=== PATIENT | female | born 1980 | race Caucasian/White ===

== ENCOUNTER 2016-05-26 20:28 | Emergency (ER) | payer BC ==
[2016-05-26 22:24] VITALS: BP 121/81
--- NOTE | 2016-05-27 23:34 | ER ---
HISTORY OF PRESENT ILLNESS: A 35-year-old lady here with complaints of abdominal discomfort. She does not describe it as pain. She states she feels more bloated. This has been ongoing for 3 days. She has noticed that her stool is robles colored at times. Again, she has no problems with abdominal pain. She has noticed her appetite is reduced and if she tries to eat anything at any form of spicy or greasy food, her stomach then becomes more upset. She has not been running a fever to her knowledge. She has been drinking fluids fairly well. Her is here and he is not having any similar symptoms. OBJECTIVE: GENERAL APPEARANCE: The patient is awake and alert, in no obvious distress. VITAL SIGNS: Reviewed. She is normotensive, temp is 99 degrees, pulse 85. LUNGS: Clear. There is no CVA tenderness with percussion. ABDOMEN: Soft with mild discomfort with palpation. There is no guarding. Bowel sounds are present and active. SKIN: Warm and dry. LABORATORY AND X-RAY: CBC is basically normal. Eosinophils are slightly elevated. Comprehensive metabolic panel is normal. UA is normal. DIAGNOSIS: Gastroenteritis. TREATMENT PLAN: The patient is to increase her liquid intake using small frequent drinks starting with water. She is to utilize food using a soft, bland diet and again in small amounts. She could consider taking an antacid such as [id number] Prilosec for a couple of days. Recheck should be p.r.n. if her symptoms are not resolving within the next 2 or 3 days. CRS/MODL /[id number]
== END 2016-05-26 21:46 | disposition home or self-care (01) ==
LOC: LB.ED 20:28
DX: K52.9 Noninfective gastroenteritis and colitis, unspecified (principal)
CPT/HCPCS: 36415; 80053; 81001; 85025; 99284

== ENCOUNTER 2017-01-23 07:32 | Emergency (ER) | payer BC ==
--- NOTE | 2017-01-23 10:29 | EDM.PDOC ---
ED HPI GENERAL MEDICAL PROBLEM - General Chief Complaint: Cardiovascular Problem Stated Complaint: palpatations Time Seen by Provider: 01/23/17 08:10 Source of Information: Reports: Patient History Limitations: Reports: No Limitations - History of Present Illness INITIAL COMMENTS - FREE TEXT/NARRATIVE: According to patient she claims that she has been having racing heart on and off for past 1-2 wks now. It happens all the time. Her heart rate is in 100s. No dizziness, chest pain or syncope. No shortness of breath or dyspnea. Also she claims that she has very poor appetite during the same time. She claims she feels full when she eats very little food, but her stomach keeps gurgling and feels hungry all the time. No fever or chills. No loss of weight or appetite.Positive heart varela, belching and burping. Pt claims that she has been going through lot of mental stress at this point. They have just moved from [place], [place], settling down in a new place. Kennedy pet dog has been sick and had surgery in [place] and still has some bleeding complications. She has not been sleeping. Also she has underlying PTSD form her past medical condition. Duration: Week(s): (2) Severity: Mild Improves with: Reports: None Worsens with: Reports: None Associated Symptoms: Denies: Confusion, Chest Pain, Cough, Diaphoresis, Fever/ Chills, Headaches, Nausea/Vomiting, Rash, Shortness of Breath, Syncope, Weakness Abdominal Pain Score (Numeric/FACES): 3 - Related Data Allergies Allergy/AdvReac Type Severity Reaction Status Date / Time cephalexin [From Keflex] Allergy Abdominal Verified 05/26/16 22:47 Pain Home Meds: Home Meds Ibuprofen 800 mg PO DAILY PRN 05/26/16 [History] Past Medical History HEENT History: Reports: Allergic Rhinitis Cardiovascular History: Reports: Other (See Below) Other Cardiovascular History: Hx organ failure during toxic shock syndrome, sepsis Genitourinary History: Reports: UTI, Recurrent 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: , Other (See Below) Other OB/BYN History: hx miscarriage, sepsis since some of fetus/placenta was retained Musculoskeletal History: Reports: Amputation, Other (See Below) Other Musculoskeletal History: quad amputee, 2 weeks ago was on bactrim for abscess on leg Psychiatric History: Reports: PTSD Endocrine/Metabolic History: Reports: Other (See Below) Other Endocrine/Metabolic History: hx insipitous diabetes during sepsis 4 years ago Hematologic History: Reports: Other (See Below) Other Hematologic History: sepsis with complete organ shut down Other Dermatologic History: hx abscess 2 weeks ago, healed - Past Surgical History HEENT Surgical History: Reports: Tonsillectomy Musculoskeletal Surgical History: Reports: Amputation Social & Family History - Family History Family Medical History: Noncontributory - Tobacco Use Smoking Status *Q: Current Every Day Smoker Years of Tobacco use: 10 Packs/Tins Daily: 1 Used Tobacco, but Quit: No - Caffeine Use Caffeine Use: Reports: Coffee - Alcohol Use Days Per Week of Alcohol Use: 1 Number of Drinks Per Day: 2 Total Drinks Per Week: 2 - Recreational Drug Use Recreational Drug Use: No ED ROS GENERAL - Review of Systems Review Of Systems: See Below Constitutional: Denies: Fever, Chills, Weakness HEENT: Denies: Ear Pain, Rhinitis, Throat Pain, Throat Swelling, Vertigo Respiratory: Denies: Shortness of Breath, Wheezing, Pleuritic Chest Pain, Cough , Sputum Cardiovascular: Denies: Chest Pain, Lightheadedness GI/Abdominal: Reports: Abdominal Pain, Nausea. Denies: Anorexia, Hematemesis, Hematochezia, Melena, Vomiting : Denies: Dysuria, Flank Pain Musculoskeletal: Denies: Back Pain, Joint Pain, Joint Swelling Skin: Denies: Pruritis, Rash Neurological: Denies: Confusion, Dizziness Psychiatric: Reports: Anxiety, Depression. Denies: Agitation, Confusion, Cravings, Hallucinations, Suicidal Ideation ED EXAM, GENERAL - Physical Exam Exam: See Below Exam Limited By: No Limitations General Appearance: Alert, WD/WN, No Apparent Distress, Anxious Eye Exam: Bilateral Eye: EOMI, PERRL Ears: Normal External Exam, Normal Canal, Hearing Grossly Normal, Normal TMs Ear Exam: Bilateral Ear: Auricle Normal, Canal Normal, TM normal Nose: Normal Inspection, Normal Mucosa, No Blood Throat/Mouth: Normal Inspection, Normal Lips, Normal Teeth, Normal Gums, Normal Oropharynx, Normal Voice, No Airway Compromise Head: Atraumatic, Normocephalic Neck: Normal Inspection, Supple, Non-Tender, Full Range of Motion Respiratory/Chest: No Respiratory Distress, Lungs Clear, Normal Breath Sounds, No Accessory Muscle Use, Chest Non-Tender Cardiovascular: Normal Peripheral Pulses, Regular Rate, Rhythm, No Edema, No Gallop, No JVD, No Murmur, No Rub GI/Abdominal: Normal Bowel Sounds, No Organomegaly, No Distention, Tender ( epigastium) Extremities: Other (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 On the court monitor her rate settles down into 70s when she is relaxed, and when she gets anxious or stressed talking about her sick dog or her past medical history of ( septic shock syndrome) her heart rate goes up into 100s. Her CBC and CMP are normal. Her palpitation is related to her anxiety. Does not appear to be of cardiac etiology. Also she has developed stress gastritis from vagal stimulation. I have started her on prilosec 40mg daily for 1 month. Also for her sleep she was started on trazodone as she has problem with initial insomnia. I have advised her to followup in clinic for further workup. Last Recorded V/S: Last Vital Signs Temp 98.6 F 01/23/17 08:00 Pulse 110 H 01/23/17 08:00 Resp 20 01/23/17 08:00 BP 121/67 01/23/17 08:00 Pulse Ox 100 01/23/17 08:00 - Orders/Labs/Meds Orders: Active Orders 24 hr Category Date Time Status Cardiac Monitoring [RC] .As Directed Care 01/23/17 09:43 Active EKG Documentation Completion [RC] ASDIRECTED Care 01/23/17 07:58 Active Labs: Laboratory Tests 01/23/17 01/23/17 Range/Units 08:40 08:40 WBC 6.4 D (4.0-11.0) K/uL RBC 4.44 (3.80-5.80) M/uL Hgb 14.0 (11.5-16.5) g/dL Hct 40.1 (37.0-47.0) % MCV 90 (76-96) fL MCH 31.5 (27.0-32.0) pg MCHC 34.9 (31.0-35.0) g/dL RDW 12.7 (11.0-16.0) % Plt Count 276 (150-500) K/uL MPV 9.6 (6.0-10.0) fL Neut % (Auto) 75.9 H (45.0-70.0) % Lymph % (Auto) 16.0 L (20.0-40.0) % [place] % (Auto) 5.0 (3.0-10.0) % Eos % (Auto) 2.8 (1.0-5.0) % Baso % (Auto) 0.3 (0.0-0.5) % Neut # (Auto) 4.83 (2.00-7.50) K/uL Lymph # (Auto) 1.02 L (1.50-4.00) K/uL [place] # (Auto) 0.32 (0.20-0.80) K/uL Eos # (Auto) 0.18 (0.04-0.40) K/uL Baso # (Auto) 0.02 (0.02-0.10) K/uL Sodium 140 (136-145) mmol/L Potassium 3.8 (3.5-5.1) mmol/L Chloride 104 (98-107) mmol/L Carbon Dioxide 24.1 (21.0-32.0) mmol/L Anion Gap 15.7 H (5.0-15.0) mmol/L BUN 8 (8-26) mg/dL Creatinine 0.61 (0.55-1.02) mg/dL Est Cr Clr Drug Dosing 118.21 mL/min Estimated GFR (MDRD) > 60 (>60) MLS/MIN BUN/Creatinine Ratio 13.1 (6-25) Glucose 115 H (74-100) mg/dL Calcium 8.8 (8.5-10.1) mg/dL Total Bilirubin 1.5 H D (0.0-1.0) mg/dL AST 14 L (15-37) U/L ALT 23 (12-78) U/L Alkaline Phosphatase 77 (46-116) U/L Total Protein 7.1 (6.4-8.2) g/dL Albumin 4.1 (3.4-5.0) g/dL Globulin 3.0 (2.2-4.2) g/dL Albumin/Globulin Ratio 1.4 (0.8-2.0) Departure - Departure Time of Disposition: 08:50 Disposition: Home, Self-Care 01 Condition: Good Clinical Impression: Gastritis, Insomnia Instructions: Gastritis, Adult, [id number], Food Choices for Gastroesophageal Reflux Disease, Adult, [id number], Trazodone tablets, Omeprazole tablets (OTC) Referrals: PCP,None [Primary Care Provider] - Forms: ED Department Discharge Care Plan Goals: Take prilosec in am 1/2 hour before meals, bland diet and trazadone 100mg for sleep. Limit coffee, limit alcohol. Return to clinic if problem persists - Problem List & Annotations (1) Gastritis SNOMED Code(s): 4126060 Code(s): K29.70 - GASTRITIS, UNSPECIFIED, WITHOUT BLEEDING Status: Acute (2) Insomnia SNOMED Code(s): 555485227 Code(s): G47.00 - INSOMNIA, UNSPECIFIED Status: Acute - Problem List Review Problem List Initiated/Reviewed/Updated: Yes - My Orders Last 24 Hours: My Active Orders 01/23/17 07:58 EKG Documentation Completion [RC] ASDIRECTED 01/23/17 09:43 Cardiac Monitoring [RC] .As Directed - Assessment/Plan Last 24 Hours: My Active Orders 01/23/17 07:58 EKG Documentation Completion [RC] ASDIRECTED 01/23/17 09:43 Cardiac Monitoring [RC] .As Directed Assessment:: Stress gastritis Initial insomnia Plan: Pt's EKG is in normal sinus rhythm. On the court monitor her rate settles down into 70s when she is relaxed, and when she gets anxious or stressed talking about her sick dog or her past medical history of ( septic shock syndrome) her heart rate goes up into 100s. Her CBC and CMP are normal. Her palpitation is related to her anxiety. Does not appear to be of cardiac etiology. Also she has developed stress gastritis from vagal stimulation. I have started her on prilosec 40mg daily for 1 month. Also for her sleep she was started on trazodone as she has problem with initial insomnia. I have advised her to followup in clinic for further workup.
== END 2017-01-23 09:15 | disposition home or self-care (01) ==
LOC: LB.ED 07:32
DX: K29.70 Gastritis, unspecified, without bleeding (principal); G47.00 Insomnia, unspecified; F17.210 Nicotine dependence, cigarettes, uncomplicated; Z79.1 Long term (current) use of non-steroidal anti-inflammatories (NSAID); Z88.1 Allergy status to other antibiotic agents
CPT/HCPCS: 36415; 80053; 85025; 93005; 99285-25

== ENCOUNTER → 2017-11-13 | Emergency (ER) | payer BC ==
[~2017-11-13] MED LIST: Sulfamethoxazole/Trimethoprim 800-160 MG Tab ONE; cefTRIAXone 1 GM Vial IM ONE
--- NOTE | 2017-11-15 15:22 | EDM.PDOC ---
ED HPI GENERAL MEDICAL PROBLEM - General Chief Complaint: General Stated Complaint: UTI Time Seen by Provider: 11/13/17 23:15 Source of Information: Reports: Patient History Limitations: Reports: No Limitations - History of Present Illness INITIAL COMMENTS - FREE TEXT/NARRATIVE: This is a 37yo F here for hematuria and pelvic pressure. She has had these symptoms in the past with a UTI and has no allergies to antibiotics. Denies fever or chills. No other health symptoms. 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: , Other (See Below) 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: hx miscarriage, sepsis since some of fetus/placenta was retained Musculoskeletal History: Reports: Amputation, Other (See Below) Other Musculoskeletal History: quad amputee, 2 weeks ago was on bactrim for abscess on leg Psychiatric History: Reports: PTSD Endocrine/Metabolic History: Reports: Other (See Below) Other Endocrine/Metabolic History: hx insipitous diabetes during sepsis 4 years ago Hematologic History: Reports: Other (See Below) Other Hematologic History: sepsis with complete organ shut down Other Dermatologic History: hx abscess 2 weeks ago, healed - Past Surgical History HEENT Surgical History: Reports: Tonsillectomy Musculoskeletal Surgical History: Reports: Amputation Social & Family History - Family History Family Medical History: Noncontributory - Caffeine Use Caffeine Use: Reports: Coffee ED ROS GENERAL - Review of Systems Review Of Systems: ROS reveals no pertinent complaints other than HPI. ED EXAM, GENERAL - Physical Exam Exam: See Below Exam Limited By: No Limitations General Appearance: Alert, WD/WN, No Apparent Distress Ears: Normal External Exam Nose: Normal Inspection Throat/Mouth: Normal Inspection Head: Atraumatic, Normocephalic Neck: Normal Inspection Respiratory/Chest: No Respiratory Distress Cardiovascular: Normal Peripheral Pulses GI/Abdominal: Normal Bowel Sounds Back Exam: Normal Inspection. No: CVA Tenderness (R), CVA Tenderness (L) Neurological: Alert, Oriented Psychiatric: Normal Affect, Normal Mood Skin Exam: Warm, Dry, Intact Course - Orders/Labs/Meds Labs: Laboratory Tests 11/13/17 Range/Units 23:19 Urine Color Red Urine Appearance Cloudy (CLEAR) Urine pH 7.0 (5.0-8.0) Ur Specific [place] 1.015 (1.003-1.030) Urine Protein Trace H (NEGATIVE) mg/dL Urine Glucose (UA) Negative (NEGATIVE) mg/dL Urine Ketones Negative (NEGATIVE) mg/dL Urine Occult Blood Large H (NEGATIVE) Urine Nitrite Negative (NEGATIVE) Urine Bilirubin Negative (NEGATIVE) Urine Urobilinogen 0.2 (0.2-1.0) E.U./dL Ur Leukocyte Esterase Large H (NEGATIVE) Urine RBC 10-20 H /HPF Urine WBC 20-30 H /HPF Ur Squamous Epith Cells Few /HPF Urine Bacteria Moderate H /HPF Meds: Medications Discontinued Medications Generic Name Dose Route Start Last Admin Trade Name Taryn PRN Reason Stop Dose Admin Ceftriaxone Sodium 1 gm 11/13/17 23:20 11/13/17 23:30 Rocephin IM 11/13/17 23:21 1 gm ONETIME ONE Administration Trimethoprim/Sulfamethoxazole 6 tab 11/13/17 23:55 Loraine Ds .ROUTE 11/13/17 23:56 .STK-MED ONE Departure - Departure Time of Disposition: 23:45 Disposition: Home, Self-Care 01 Condition: Good Clinical Impression: UTI (urinary tract infection) Qualifiers: Urinary tract infection type: acute cystitis Hematuria presence: with hematuria Qualified Code(s): N30.01 - Acute cystitis with hematuria - Discharge Information Instructions: Urinary Tract Infection, Adult Forms: ED Department Discharge Additional Instructions: Take Bactrim one tab 2 times a day for 3 days. Take Diflucan if needed and repeat in 48hours if 1st dose does not work
== END | disposition home or self-care (01) ==
LOC: LB.ED 22:54
DX: N30.01 Acute cystitis with hematuria (principal); Z88.1 Allergy status to other antibiotic agents; Z79.899 Other long term (current) drug therapy
CPT/HCPCS: 81001; 96372; 99283; A9270; J0696

== ENCOUNTER 2019-05-08 22:55 | Emergency (ER) | payer BC ==
[2019-05-08] MEDS ORDERED: Ciprofloxacin 500 MG Tab ONE (23:05)
[2019-05-08] MEDS ORDERED: Phenazopyridine 100 MG Tab ONE (23:05)
--- NOTE | 2019-05-09 14:25 | EDM.PDOC ---
ED HPI GENERAL MEDICAL PROBLEM - General Chief Complaint: General Stated Complaint: UTI SYMPTOMS Time Seen by Provider: 05/08/19 23:20 Source of Information: Reports: Patient, RN History Limitations: Reports: No Limitations - History of Present Illness INITIAL COMMENTS - FREE TEXT/NARRATIVE: Patient is a 38 year old white female with complaint of urinary frequency and burning that started today. Has occassional UTI's Denies fever , flank pain or Abdominal pain Onset: Today Onset Date: 05/08/19 Onset Time: 12:00 Duration: Hour(s): (9), Getting Worse Quality: Reports: Burning Severity: Mild Associated Symptoms: Reports: No Other Symptoms Bladder Pain Score (Numeric/FACES): 3 - Related Data Home Meds: Home Meds Omeprazole 1 cap PO DAILY 05/08/19 [History] traZODone HCl [Trazodone HCl] 1 tab PO BEDTIME 05/08/19 [History] Past Medical History HEENT History: Reports: Allergic Rhinitis, Impaired Vision Cardiovascular History: Reports: Other (See Below) Other Cardiovascular History: Hx organ failure during toxic shock syndrome, sepsis Gastrointestinal History: Reports: GERD Genitourinary History: Reports: UTI, Recurrent 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: , Other (See Below) 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 LOADER History: hx miscarriage, sepsis since some of fetus/placenta was retained Musculoskeletal History: Reports: Amputation, Other (See Below) Other Musculoskeletal History: quad amputee, 2 weeks ago was on bactrim for abscess on leg Psychiatric History: Reports: Anxiety, PTSD Endocrine/Metabolic History: Reports: Other (See Below) Other Endocrine/Metabolic History: hx insipitous diabetes during sepsis 4 years ago Hematologic History: Reports: Other (See Below) Other Hematologic History: sepsis with complete organ shut down Other Dermatologic History: hx abscess 2 weeks ago, healed - Past Surgical History HEENT Surgical History: Reports: Tonsillectomy Musculoskeletal Surgical History: Reports: Amputation Social & Family History - Family History Family Medical History: Noncontributory - Tobacco Use Smoking Status *Q: Never Smoker Second Hand Smoke Exposure: No - Caffeine Use Caffeine Use: Reports: None - Recreational Drug Use Recreational Drug Use: No ED ROS GENERAL - Review of Systems Review Of Systems: See Below Constitutional: Denies: Fever, Chills, Weakness, Decreased Appetite Respiratory: Denies: Shortness of Breath, Cough Cardiovascular: Denies: Chest Pain GI/Abdominal: Denies: Nausea, Vomiting : Reports: Dysuria, Frequency, Pain, Urgency. Denies: Flank Pain, Urinary Retention ED EXAM, RENAL/ - Physical Exam Exam: See Below Exam Limited By: No Limitations General Appearance: Alert, WD/WN, No Apparent Distress Cardiovascular: Regular Rate, Rhythm GI/Abdominal: Soft, Non-Tender Extremities: Normal Inspection, Non-Tender Neurological: Alert, Oriented Skin Exam: Warm, Dry, Intact Lymphatic: No Adenopathy Course - Vital Signs Last Recorded V/S: Last Vital Signs Temp 99 F 05/08/19 23:00 Pulse 92 05/08/19 23:00 Resp 20 05/08/19 23:00 BP 129/75 05/08/19 23:00 Pulse Ox - Orders/Labs/Meds Labs: Laboratory Tests 05/08/19 Range/Units 23:05 Urine Color Other Urine Appearance Clear (CLEAR) Urine pH 6.5 (5.0-8.0) Ur Specific [place] 1.015 (1.003-1.030) Urine Protein Negative (NEGATIVE) mg/dL Urine Glucose (UA) Negative (NEGATIVE) mg/dL Urine Ketones Negative (NEGATIVE) mg/dL Urine Occult Blood Large H (NEGATIVE) Urine Nitrite Negative (NEGATIVE) Urine Bilirubin Negative (NEGATIVE) Urine Urobilinogen 0.2 (0.2-1.0) E.U./dL Ur Leukocyte Esterase Small H (NEGATIVE) Urine RBC 5-10 H /HPF Urine WBC 10-20 H /HPF Urine WBC Clumps Few /HPF Ur Squamous Epith Cells Few /HPF Departure - Departure Time of Disposition: 23:50 Disposition: Home, Self-Care 01 Condition: Good Clinical Impression: UTI, Urinary tract infectious disease - Discharge Information *PRESCRIPTION DRUG MONITORING PROGRAM REVIEWED*: Not Applicable *COPY OF PRESCRIPTION DRUG MONITORING REPORT IN PATIENT CHUY: Not Applicable Instructions: Phenazopyridine tablets, Urinary Tract Infection, Adult, Easy-to- Read, Fluconazole tablets, Ciprofloxacin tablets Referrals: PCP,None [Primary Care Provider] - Forms: ED Department Discharge Additional Instructions: Begin taking provided Cipro as directed: 1 tablet by mouth twice daily for 3 days. Fill prescription for Diflucan tomorrow at regular pharmacy and take as instructed. May also take provided Pyridium as instructed: 2 talets by mouth 3 times daily as needed for bladder spasms/pain. Drink plenty of fluids (water) and get plenty of rest. Also drink 2-3 8oz glasses of cranberry juice daily to help with relief of symptoms. If there is any need to change antibiotic therapy , you will be contacted once culture results have been completed. Should symptoms worsen or persist, return to clinic for further evaluation treatment. Call with any questions. Sepsis Event Note - Evaluation Sepsis Screening Result: No Definite Risk - Focused Exam Date Exam was Performed: 05/10/19 Time Exam was Performed: 09:59
== END 2019-05-08 23:30 | disposition home or self-care (01) ==
LOC: LB.ED 22:55
DX: N39.0 Urinary tract infection, site not specified (principal); K21.9 Gastro-esophageal reflux disease without esophagitis; Z79.899 Other long term (current) drug therapy
CPT/HCPCS: 81001; 87086; 87088; 87186; 99283; A9270

== ENCOUNTER 2020-06-04 22:53 | Emergency (ER) | payer BC ==
--- NOTE | 2020-06-04 23:12 | EDM.PDOC ---
ED HPI GENERAL MEDICAL PROBLEM - General Chief Complaint: Lower Extremity Injury/Pain Stated Complaint: swelling in leg Time Seen by Provider: 06/04/20 23:33 Source of Information: Reports: Patient, RN History Limitations: Reports: No Limitations - History of Present Illness INITIAL COMMENTS - FREE TEXT/NARRATIVE: 39 YOF with bilateral at knee amputations presents to the ED with with erythema and swelling on the skin of her Rt leg amputation site. Skin is not warm to the touch. There is a palpable lump present. No rash noted. She has no fever. Symptoms began this morning. She has taken 600 Ibuprofen for her symptoms. Symptoms began this evening. 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 - Related Data Home Meds: Home Meds Omeprazole 1 cap PO DAILY 05/08/19 [History] traZODone HCl [Trazodone HCl] 1 tab PO BEDTIME 05/08/19 [History] Past Medical History HEENT History: Reports: Allergic Rhinitis, Impaired Vision Cardiovascular History: Reports: Other (See Below) Other Cardiovascular History: Hx organ failure during toxic shock syndrome, sepsis Gastrointestinal History: Reports: GERD Genitourinary History: Reports: UTI, Recurrent 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: , Other (See Below) Other ACCOUNTING 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 SUPERVISOR History: hx miscarriage, sepsis since some of fetus/placenta was retained Musculoskeletal History: Reports: Amputation Other Musculoskeletal History: quad amputee, 2 weeks ago was on bactrim for abscess on leg Psychiatric History: Reports: Anxiety, PTSD Endocrine/Metabolic History: Reports: Other (See Below) Other Endocrine/Metabolic History: hx insipitous diabetes during sepsis 4 years ago Hematologic History: Reports: Other (See Below) Other Hematologic History: sepsis with complete organ shut down Other Dermatologic History: hx abscess 2 weeks ago, healed - Past Surgical History HEENT Surgical History: Reports: Tonsillectomy Musculoskeletal Surgical History: Reports: Amputation Social & Family History - Family History Family Medical History: No Pertinent Family History - Caffeine Use Caffeine Use: Reports: None Review of Systems - Review of Systems Review Of Systems: Comprehensive ROS is negative, except as noted in HPI. Skin: Reports: Other (cystic mass distal femur, at amputation site. ) ED EXAM, GENERAL - Physical Exam Exam: See Below Exam Limited By: No Limitations General Appearance: Alert, WD/WN, Anxious Eye Exam: Bilateral Eye: PERRL Ears: Normal External Exam Nose: Normal Inspection, Normal Mucosa Throat/Mouth: Normal Inspection, Normal Lips, Normal Teeth Head: Atraumatic, Normocephalic Neck: Normal Inspection, Supple, Non-Tender Respiratory/Chest: No Respiratory Distress, Lungs Clear, Normal Breath Sounds Cardiovascular: Normal Peripheral Pulses, Regular Rate, Rhythm, No Edema GI/Abdominal: Soft, Non-Tender (Female) Exam: Deferred Rectal (Female) Exam: Deferred Extremities: Joint Swelling Neurological: Alert, Oriented, CN II-XII Intact Skin Exam: Warm, Dry, Intact, Normal Color, No Rash, Other (cystic mass distal femur) ED TRAUMA EXTREMITY PROCEDURES - Additional/Other Procedure(s) Other (Free Text) Procedure(s): Drained cyst Rt lower extremity. Cleansed with Betadine. 2% Lidocaine used to numb the area. Injected 5ML into the site. 18G needle used to drain a 2cm cystic mass distal femur. Course - Orders/Labs/Meds Orders: Active Orders 24 hr Category Date Time Status Femur wo Cont Rt [CT] Stat Exams 06/04/20 23:07 Ordered CBC WITH AUTO DIFF [HEME] Stat Lab 06/04/20 23:06 Ordered COMPREHENSIVE METABOLIC PN,CMP [CHEM] Stat Lab 06/04/20 23:06 Ordered Departure - Departure Time of Disposition: 00:22 Disposition: Home, Self-Care 01 Condition: Good Clinical Impression: Other cyst of bone, right lower leg Clinical Impression: (Ruled Out): Dermoid cyst of lower extremity - Discharge Information *PRESCRIPTION DRUG MONITORING PROGRAM REVIEWED*: Not Applicable *COPY OF PRESCRIPTION DRUG MONITORING REPORT IN PATIENT CHUY: Not Applicable Forms: ED Department Discharge Additional Instructions: F/U with Dr. Bishop in the clinic for cytology report. Take Abx therapy to prevent infection. Keep wound clean and dry. Use Bacitracin as needed. Rest and elevate area as needed. - Problem List & Annotations (1) Other cyst of bone, right lower leg SNOMED Code(s): 941724805, 486161336 Code(s): M85.661 - OTHER CYST OF BONE, RIGHT LOWER LEG Status: Acute Priority: Low Current Visit: Yes - Problem List Review Problem List Initiated/Reviewed/Updated: Yes - My Orders Last 24 Hours: My Active Orders 06/04/20 23:06 CBC WITH AUTO DIFF [HEME] Stat COMPREHENSIVE METABOLIC PN,CMP [CHEM] Stat 06/04/20 23:07 Femur wo Cont Rt [CT] Stat - Assessment/Plan Last 24 Hours: My Active Orders 06/04/20 23:06 CBC WITH AUTO DIFF [HEME] Stat COMPREHENSIVE METABOLIC PN,CMP [CHEM] Stat 06/04/20 23:07 Femur wo Cont Rt [CT] Stat Assessment:: Complex cyst distal femur. Plan: F/U with Dr. Bishop in the clinic for cytology report. Take Abx therapy to prevent infection. Keep wound clean and dry. Use Bacitracin as needed. Rest and elevate area as needed.
[2020-06-04] MEDS ORDERED: Sulfamethoxazole/Trimethoprim 800-160 MG Tab ONE (23:20)
[2020-06-05] MEDS ORDERED: Lidocaine 2% 5 ML SDV INJECT ONE (08:37)
--- NOTE | 2020-06-05 18:19 | CT ---
DATE OF SERVICE: 06/04/2020 CLINICAL DATA: Osteomyelitis. RIGHT LEG CT: Multislice axial acquisition without IV contrast was performed. Axial images and sagittal and coronal reformations are reviewed. No priors. The patient is status post below the knee amputation at the level of the proximal tibia and proximal fibular diaphyses. There is a 3.6 cm oval shaped near fluid density collection located subcutaneously adjacent to the tibial stump. It does have a thin soft tissue rim. The cortices of the distal tibia and distal fibula appear intact without erosion or lytic destruction. The osseous structures appear unremarkable. The soft tissues proximal to the amputation are unremarkable. IMPRESSION: Subcutaneous, near fluid density collection adjacent to the stump of the distal tibia. It does have a thin soft tissue rim. No associated bony destruction. The possibility of an abscess should be considered. Osteomyelitis cannot be completely excluded. An MRI scan with contrast enhancement may be helpful. Three phase bone scan may also be helpful. No other significant findings. [id number] MTDD
== END 2020-06-05 00:37 | disposition home or self-care (01) ==
LOC: LB.ED 22:53
DX: M85.661 Other cyst of bone, right lower leg (principal); K21.9 Gastro-esophageal reflux disease without esophagitis; E23.2 Diabetes insipidus; Z79.899 Other long term (current) drug therapy
CPT/HCPCS: 10060; 36415; 73700-RT; 80053; 85025; 99284-25; A9270-GY

== ENCOUNTER 2021-05-25 16:31 | Emergency (ER) | payer BC | END 2021-05-25 16:51 | disposition home or self-care (01) | LOC: LB.ED 16:31 | DX: N30.01 Acute cystitis with hematuria (principal); K21.9 Gastro-esophageal reflux disease without esophagitis; F41.9 Anxiety disorder, unspecified; Z79.899 Other long term (current) drug therapy | CPT/HCPCS: 81001; 99281; 99283 ==

== ENCOUNTER 2021-08-09 15:16 | Emergency (ER) | payer BC | END 2021-08-09 15:45 | disposition home or self-care (01) | LOC: LB.ED 15:16 | DX: L02.224 Furuncle of groin (principal); K21.9 Gastro-esophageal reflux disease without esophagitis; Z79.899 Other long term (current) drug therapy | CPT/HCPCS: 99281; 99282 ==

== ENCOUNTER 2021-11-18 05:45 | Emergency (ER) | payer BC ==
[2021-11-18] MEDS ORDERED: Ciprofloxacin 500 MG Tab ONE (06:45)
[2021-11-18 06:58] VITALS: BP 118/76; PULSE 78
== END 2021-11-18 06:50 | disposition home or self-care (01) ==
LOC: LB.ED 05:45
DX: N30.01 Acute cystitis with hematuria (principal); F17.210 Nicotine dependence, cigarettes, uncomplicated; Z79.899 Other long term (current) drug therapy
CPT/HCPCS: 81001; 87086; 99282; 99283; A9270-GY

== ENCOUNTER 2022-01-31 18:53 | Emergency (ER) | payer BC | END 2022-01-31 20:20 | disposition home or self-care (01) | LOC: LB.ED 18:53 | DX: R00.2 Palpitations (principal); K21.9 Gastro-esophageal reflux disease without esophagitis; Z79.899 Other long term (current) drug therapy | CPT/HCPCS: 93005; 99284 ==

== ENCOUNTER 2022-08-13 22:12 | Emergency (ER) | payer BC ==
[2022-08-13 22:46] LABS: BASOPHILS ABSOLUTE AUTO 0.02 K/uL (0.02-0.10); BASOPHILS PERCENT AUTO 0.2 % (0.0-0.5); EOSINOPHILS ABSOLUTE AUTO 0.26 K/uL (0.04-0.40); EOSINOPHILS PERCENT AUTO 3.1 % (1.0-5.0); HEMATOCRIT 39.9 % (37.0-47.0); HEMOGLOBIN 13.7 g/dL (11.5-16.5); LYMPHOCYTES ABSOLUTE AUTO 2.35 K/uL (1.50-4.00); LYMPHOCYTES PERCENT AUTO 28.1 % (20.0-40.0); MEAN CORPUSCULAR HEMOGLOBIN 31.4 pg (27.0-32.0); MEAN CORPUSCULAR HGB CONC 34.3 g/dL (31.0-35.0); MEAN CORPUSCULAR VOLUME 92 fL (76-96); MEAN PLATELET VOLUME 9.9 fL (6.0-10.0); MONOCYTES ABSOLUTE AUTO 0.54 K/uL (0.20-0.80); MONOCYTES PERCENT AUTO 6.5 % (3.0-10.0); NEUTROPHILS ABSOLUTE AUTO 5.19 K/uL (2.00-7.50); NEUTROPHILS PERCENT AUTO 62.1 % (45.0-70.0); PLATELET COUNT,PLT 212 K/uL (150-500); RED BLOOD CELL COUNT 4.36 M/uL (3.80-5.80); RED CELL DISTRIBUTION WIDTH 12.9 % (11.0-16.0); WHITE BLOOD CELL COUNT,WBC 8.4 K/uL (4.0-11.0)
[2022-08-13 22:53] LABS: BILIRUBIN,URINE NEGATIVE (NEGATIVE); GLUCOSE,URINE NEGATIVE (NEGATIVE); KETONES,URINE NEGATIVE (NEGATIVE); LEUKOCYTE ESTERASE,URINE NEGATIVE (NEGATIVE); NITRITE,URINE NEGATIVE (NEGATIVE); OCCULT BLOOD,URINE LARGE (NEGATIVE); PROTEIN,URINE >=300 mg/dL (NEGATIVE); UROBILINOGEN,URINE 0.2 E.U./dL (0.2-1.0)
[2022-08-13 22:58] LABS: ANION GAP 13.4 mmol/L (5.0-15.0); APPEARANCE,URINE CLOUDY (CLEAR); BUN/CREATININE RATIO 22.1 (6-25); CALCIUM 8.5 mg/dL (8.5-10.1); CARBON DIOXIDE,CO2 24.2 mmol/L (21.0-32.0); COLOR,URINE RED; CREATININE 0.68 mg/dL (0.55-1.02); EST CRCL DRUG DOSING (CG) 4.2 mL/min; POTASSIUM,K 3.6 mmol/L (3.5-5.1); RBC,URINE PACKED /HPF
[2022-08-13 22:59] LABS: WBC,URINE 0-5 /HPF
[2022-08-13] MEDS ORDERED: Cephalexin 500 MG Cap ONE (23:45)
== END 2022-08-13 23:33 | disposition home or self-care (01) ==
LOC: LB.ED 22:12
DX: N30.01 Acute cystitis with hematuria (principal); K21.9 Gastro-esophageal reflux disease without esophagitis; Z79.899 Other long term (current) drug therapy
CPT/HCPCS: 36415; 80048; 81001; 81025; 82550; 83605; 85025; 99283; A9270-GY

== ENCOUNTER 2023-12-15 07:34 | Emergency (ER) | payer BC ==
[2023-12-15 08:25] LABS: APPEARANCE,URINE SLIGHTLY CLOUDY (CLEAR); BILIRUBIN,URINE UNABLE TO REPORT (NEGATIVE); COLOR,URINE RED; GLUCOSE,URINE UNABLE TO REPORT mg/dL (NEGATIVE); KETONES,URINE UNABLE TO REPORT mg/dL (NEGATIVE); NITRITE,URINE UNABLE TO REPORT (NEGATIVE); PROTEIN,URINE UNABLE TO REPORT mg/dL (NEGATIVE); UROBILINOGEN,URINE UNABLE TO REPORT E.U./dL (0.2-1.0)
[2023-12-15 08:26] LABS: BACTERIA,URINE FEW /HPF; SQUAMOUS EPITHELIAL CELLS,UR FEW /HPF
[2023-12-15 08:29] LABS: LEUKOCYTE ESTERASE,URINE UNABLE TO REPORT (NEGATIVE); OCCULT BLOOD,URINE UNABLE TO REPORT (NEGATIVE)
[2023-12-15] MEDS: Sulfamethoxazole/Trimethoprim 800-160 MG Tab PO ONE (08:32)
== END 2023-12-15 08:40 | disposition home or self-care (01) ==
LOC: LB.ED 07:34
DX: N30.01 Acute cystitis with hematuria (principal); K21.9 Gastro-esophageal reflux disease without esophagitis; Z79.899 Other long term (current) drug therapy
CPT/HCPCS: 81001; 87086; 99283; A9270-GY

== ENCOUNTER 2024-02-05 09:51 | Emergency (ER) | payer BC ==
[2024-02-05 10:29] LABS: APPEARANCE,URINE CLEAR (CLEAR); COLOR,URINE OTHER
[2024-02-05 10:30] LABS: BILIRUBIN,URINE NEGATIVE (NEGATIVE); GLUCOSE,URINE NEGATIVE (NEGATIVE); KETONES,URINE NEGATIVE (NEGATIVE); LEUKOCYTE ESTERASE,URINE SMALL (NEGATIVE); NITRITE,URINE NEGATIVE (NEGATIVE); OCCULT BLOOD,URINE LARGE (NEGATIVE); PROTEIN,URINE NEGATIVE (NEGATIVE); RBC,URINE 0-5 /HPF; UROBILINOGEN,URINE 0.2 E.U./dL (0.2-1.0)
[2024-02-05 10:31] LABS: SQUAMOUS EPITHELIAL CELLS,UR FEW /HPF
[2024-02-05] MEDS: Ciprofloxacin 500 MG Tab PO SCH (11:57)
== END 2024-02-05 12:06 | disposition home or self-care (01) ==
LOC: LB.ED 09:51
DX: N39.0 Urinary tract infection, site not specified (principal); K21.9 Gastro-esophageal reflux disease without esophagitis; Z90.89 Acquired absence of other organs; Z79.899 Other long term (current) drug therapy
CPT/HCPCS: 81001; 99283; A9270

== ENCOUNTER 2024-05-12 22:25 | Emergency (ER) | payer BC ==
[2024-05-12] MEDS ORDERED: Ciprofloxacin 500 MG Tab ONE (23:00)
[2024-05-12] MEDS ORDERED: Phenazopyridine 100 MG Tab ONE (23:00)
[2024-05-12 23:16] LABS: APPEARANCE,URINE CLEAR (CLEAR); BILIRUBIN,URINE NEGATIVE (NEGATIVE); COLOR,URINE RED; GLUCOSE,URINE NEGATIVE (NEGATIVE); KETONES,URINE NEGATIVE (NEGATIVE); PROTEIN,URINE 100 mg/dL (NEGATIVE)
[2024-05-12 23:17] LABS: BACTERIA,URINE RARE /HPF; LEUKOCYTE ESTERASE,URINE TRACE (NEGATIVE); NITRITE,URINE NEGATIVE (NEGATIVE); OCCULT BLOOD,URINE LARGE (NEGATIVE); RBC,URINE 20-30 /HPF; SQUAMOUS EPITHELIAL CELLS,UR FEW /HPF; UROBILINOGEN,URINE 0.2 E.U./dL (0.2-1.0); WBC,URINE 30-40 /HPF
== END 2024-05-12 23:33 | disposition home or self-care (01) ==
LOC: LB.ED 22:25
DX: N30.01 Acute cystitis with hematuria (principal); K21.9 Gastro-esophageal reflux disease without esophagitis; F17.210 Nicotine dependence, cigarettes, uncomplicated; Z79.899 Other long term (current) drug therapy
CPT/HCPCS: 81001; 99283; A9270-GY

== ENCOUNTER 2024-09-16 08:39 | Emergency (ER) | payer BC ==
[2024-09-16 08:58] LABS: GLUCOSE,URINE NEGATIVE (NEGATIVE); OCCULT BLOOD,URINE LARGE (NEGATIVE)
[2024-09-16 09:03] LABS: APPEARANCE,URINE SLIGHTLY CLOUDY (CLEAR); SQUAMOUS EPITHELIAL CELLS,UR OCCASIONAL /HPF
== END 2024-09-16 09:43 | disposition home or self-care (01) ==
LOC: LB.ED 08:39
DX: N30.01 Acute cystitis with hematuria (principal); F17.210 Nicotine dependence, cigarettes, uncomplicated; Z79.899 Other long term (current) drug therapy
CPT/HCPCS: 81001; 99283

== ENCOUNTER 2025-01-28 07:35 | Emergency (ER) | payer BC ==
[2025-01-28 08:38] LABS: INFLUENZA A NAA NEGATIVE (NEGATIVE); INFLUENZA B NAA NEGATIVE (NEGATIVE); RESPIRATORY SYNCYTIAL VIR NAA NEGATIVE (NEGATIVE)
[2025-01-28 08:56] LABS: CORONAVIRUS COVID-19 NAA NEGATIVE (NEGATIVE)
== END 2025-01-28 09:30 | disposition home or self-care (01) ==
LOC: LB.ED 07:35
DX: J45.909 Unspecified asthma, uncomplicated (principal); J06.9 Acute upper respiratory infection, unspecified; K21.9 Gastro-esophageal reflux disease without esophagitis; Z79.899 Other long term (current) drug therapy
CPT/HCPCS: 71046; 87637; 94640; 99285; A9270-GY